=== PATIENT | male | born 1975 | race Caucasian/White ===

== ENCOUNTER 2017-07-07 19:10 | Emergency (ER) | payer MEDICAID, OTHER ==
[2017-07-07] MEDS: ACETAMINOPHEN 500 MG TAB PO (20:07)
[2017-07-07] MEDS: IBUPROFEN 200 MG TAB PO (20:07)
== END 2017-07-07 21:23 | disposition home or self-care (01) ==
LOC: FTE 19:10
DX: S99.921A Unspecified injury of right foot, initial encounter (principal); X58.XXXA Exposure to other specified factors, initial encounter; Y92.89 Other specified places as the place of occurrence of the external cause
CPT/HCPCS: 73630; 99283-25